=== PATIENT | female | born 1965 | race Caucasian/White ===

== ENCOUNTER 2024-09-07 15:00 | Outpatient (OUT) | payer BC, SELFPAY | END 2024-09-07 15:01 | disposition home or self-care (01) | LOC: SLEEP 09-08 15:53 | PROVIDERS: PCP Psychiatry & Neurology Neurology; Visit Provider Psychiatry & Neurology Neurology | DX: G47.33 Obstructive sleep apnea (adult) (pediatric) (principal); F51.01 Primary insomnia; G47.11 Idiopathic hypersomnia with long sleep time | CPT/HCPCS: 95806 ==